=== PATIENT | female | born 1995 | race Two or more races ===

== ENCOUNTER 2024-03-12 07:29 | Outpatient (CLI) | payer MEDICAID, SELFPAY ==
--- NOTE | 2024-03-12 07:15 | CRLHL7_ITS ---
For Patients: As a result of the Cures Act, medical imaging exams and procedure reports are released immediately into your electronic medical record. You may view this report before your referring provider. If you have questions, please contact your health care provider. INDICATION: First trimester scan, establish dates. COMPARISON: None. TECHNIQUE: Real-time bettencourt-scale imaging of the pelvis was performed. FINDINGS: Sonographic imaging demonstrates a single living intrauterine gestation. The embryo demonstrates a regular cardiac rate measuring 176 beats per minute. The embryo`s crown-rump length measurement of 2.9 cm corresponds to a gestational age of 9 weeks 5 days with a sonographic due date of 10/10/2024. There is a normal-appearing yolk sac. There are no gross abnormalities noted within the embryo at this early state of development. The gestational sac has a normal appearance. There is no evidence of a perigestational hemorrhage. The amount of fluid within the sac appears appropriate for gestational age. The cervix is closed. The myometrium appears normal. The ovaries are of normal size. Corpus luteal cyst right ovary. There are no suspicious fluid collections noted in the cul-de-sac. IMPRESSION: Single living intrauterine with sonographic gestational age 9 weeks 5 days and sonographic due date of 10/10/2024. Dictated by Conrad Peck MD @ 03/12/2024 12:12:13 PM (Electronically Signed)
--- OUTSIDE RECORDS SUMMARY | 2024-03-12 07:36 | XMS_ITS | Data Portability ---
Author Organization [facility] Address [address] [place] [phone] Assessment No assessment recorded. Plan of Treatment Reminders Order Date Submit Date Provider Last Modified By Organization Details Last Modified Time Details Appointments None recorded . Lab beta-HCG , quantita tive, serum or plasma 021 02/15/20 21 [facility], [address] [place] [address], [phone], 1 13:19:28 pap, LB + reflex to HR HPV if ASC-U 022 05/01/20 22 [facility], [address] [place] [address], [phone], 2 13:31:23 Referral None recorded . Procedures None recorded . Surgeries None recorded . Imaging None recorded . Medication Orders Vienva 0.1 mg-20 mcg tablet 022 05/01/[address], [address], 2 14:39:41 Vienva 0.1 mg-20 mcg tablet 024 12/24/[address], [address], 4 12:33:22 Patient TargetsNo targets recorded. Patient InstructionsNo instructions recorded. Reason for Referral None Reported. Results Created Date Observation Date Name Description Value Unit Range Abnormal Flag Note LastModifiedBy Organization Detail LastModifiedTime 02/15/20 21 02/14/2021 pregn antoni test, urine HCG negati ve Not Available [facility] [facility] [address] [place], [address], 02/14/2021 12:54:52 Result Notes None recorded. Problems Name Problem SNOMED Code Status Onset Date Resolution Date Notes Provider Name and Address Organization Details Recorded Time Cyst of ovary 34986551 Active 021 Lindsay Bradshaw NP [address] [place], [address], [facility] [employer] 1 16:37:01 Migraine 67182934 Active 022 no jose Todd, LUIS [address] [place] [address], [phone], [facility] [employer] 2 14:08:27 Problem Notes None recorded. Procedures Surgical History Date Name Laterality Status Provider Name and Address Organization Details Recorded Time 0 delivery completed Lindsay Bradshaw NP [address] [place], [address], [facility] [employer] 02/14/2021 16:35:17 Imaging Results None recorded. Procedure Notes None recorded. Medical Equipment None Reported. Allergies No known drug allergies Medications Name Sig Start Date Stop Date Status Note LastModified by Organization Details LastModified Time Previfem 0.25 mg-35 mcg tablet Take 1 tablet every day by oral route. 02/15 completed Nauseaus Not Available Not Available Not Available Vienva 0.1 mg-20 mcg tablet TAKE ONE TABLET BY MOUTH ONCE DAILY 2023 active Not Available Not Available Not Avai lable Vitals Date Recorded Body height Body mass index (BMI) Body weight Body temperature Heart rate Systolic blood pressure Diastolic blood pressure Provider Name and Address Organization Details Last Updated DateTime 1 142.24 cm 25.6 kg/m2 75453.5 3 g 98.8 [degF] 81 /min 112 mm[Hg] 70 mm[Hg] Lindsay Bradshaw NP [address] [place], [address] 1 12:49:22 Date Recorded Heart rate Body weight Systolic blood pressure Diastolic blood pressure Provider Name and Address Organization Details Last Updated DateTime 05/01/2022 74 /min 38228.31 g 104 mm[Hg] 69 mm[Hg] Erick Peña [facility] 05/01/2022 15:36:51 Date Recorded Body height Body mass index (BMI) Body weight Respiratory rate Body temperature Oxygen saturation Oxygen saturation in Arterial blood by Pulse oximetry Heart rate Systolic blood pressure Diastolic blood pressure Provider Name and Address Organization Details Last Updated DateTime 4 142.24 cm 4.1 kg/m2 8255.38 g 22 /min 97.3 [degF] 99 % 99 % 77 /min 110 mm[Hg] 70 mm[Hg] Kim Mistry [facility] 4 10:08:31 Social History Question Answer Notes LastModified by Organizat ion Details LastModified Time Tobacco Smoking Status Never Smoker Lindsay Bradshaw, COOK[employer] [address] [place], [address], [facility] 02/14/2021 16:34:41 What Is Your Level Of Alcohol Consumption? None [email or web address] Information not available 12/24/2023 What Type Of Orange Picking Supervisor Do You Use? None [email or web address] Information not available 02/14/2021 How Many Children Do You Have? 1 [email or web address] Information not available 02/14/2021 What Is Your Relationship Status? [email or web address] Information not available 02/14/2021 Are You Sexually Active? Yes [email or web address] Information not available 02/14/2021 Do You Use Any Illicit Or Recreational Drugs? No Information not available 02/14/2021 Sex: Unknown Functional Status None recorded. Mental Status None recorded. Family History Relationship Description Onset Age of this Age Resolved Age Notes Father No current problems or disability Mother No current problems or disability Medical History No medical history recorded. Gynecological History Statement/Question Response Sexual Problems? N Current Control Method BCPs Age at First Child 24 LMP Unknown Sexually Active? Y Obstetrics History GPAL:G 1 P 1 0 0 1 Type Value Full Term 1 Living 1 Total 1 Past Encounters Encounter ID Performer Location Encounter Start Date Encounter Closed Date Diagnosis/Indication Diagnosis SNOMED-CT Code Diagnosis ICD10 Code [id number] Lindsay Bradshaw NP [facility] [address] [place] [id number] 02/14/2021 12:09:25 02/14/2021 14:20:03 Nausea and vomiting 97651289 R11.2 [id number] Bhumika Todd NP [facility] [address] [facility] [place] [id number] 05/01/2022 15:20:15 05/01/2022 16:45:41 Screening for malignant neoplasm of cervix 697594441 Z12.4 Surveillan ce of oral contraception 701425203 Z30.41 [id number] Bhumika Todd NP [facility] [address] [place] [id number] 12/24/2023 09:59:50 12/24/2023 12:36:09 Surveillance of oral contraception 580965323 Z30.41 Health Concerns Section Related Observation LastModified by Organization Detai ls LastModified Time None Recorded Concern Status LastModified by Organization Details LastModified Time None Recorded Advance Directives Directive None Recorded Payers Encounter Date Sequence Insurance Name Policy Number Policy Cross Covered Member ID Cross Member ID Guarantor Name 02/14/2021 SLIDING FEE SCHEDULE - DISCOUNT Linsey Lia Quix Rea 05/01/2022 SLIDING FEE SCHEDULE - DISCOUNT Linsey Lia Quix Rea 12/24/2023 SLIDING FEE SCHEDULE - DISCOUNT Linsey Lia Quix Rea Notes Date Note Type Note Provider Name and Address Organization Details Recorded Time 02/14/2021 text/html HPI Notes: 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 Linsey arrived here 3 months ago from [facility]. Just prior to leaving, she had received a Depo injection. She was enrolled in [facility] and saw a MD at [facility] who started her on Previfem for contraception. Around this time although perhaps before (patient is not quite sure), Linsey began feeling morning nausea and vomiting in the mornings. She also began having intermittent headaches. The symptoms have persisted for 15-20 days. These are the same symptoms she had with her first where she experienced daily nausea and vomiting until 7 months. 2 UPTs at home have been negative. Sexually active with . She is able to stay hydrated and keep down meals and snacks despite many foods tasting foul to her. Her sense of smell is heightened. No diarrhea, reflux. No stomach pain. No rashes, fever. No one else at home sick. No leg swelling, SOB. No vision changes, weakness, severe headache. Mother of 20 m.o. girl, Miguel. . C/S Open to . PSH: C/S x 1. PMH: Ovarian Cysts. Nonsmoker, No ETOH use. Lindsay Bradshaw NP [address] [place], [address], [facility] [employer] 02/14/2021 16:37:57 05/01/2022 text/html HPI Notes: Linsey is a 26 y.o. established patient presenting in follow up for refill of oral contraceptives and first pap smear Sexually active with one male partner - has missed pills in the past but taken UPTs. No STI testing concerns. LMP 10 days ago No history of HTN, blood clots, migraine with aura No other concerns today - denies vaginal symptoms, urinary symptoms Bhumika Todd NP [address] [place], [address], [facility] [employer] 05/01/2022 16:14:21 12/24/2023 text/html HPI Notes: Linsey presents for renewal of COCs Has RCFP program through 02/2024 Considering a in the coming months. Has a 4 y.o. with one c/section. No other complications. Taking pills daily, no risk of Sexually active with one male partner, no concern for STIs Safe at home Denies headaches, vision changes, severe abdominal/leg/chest pain Bhumika Todd NP [address] [place], [address], [facility] [employer] 12/24/2023 10:27:14 OBGyn Episode No OBEpisode recorded.
--- OUTSIDE RECORDS SUMMARY | 2024-03-12 07:36 | XMS_ITS | Clinical Summary ---
Author Organization [facility] Address [place], [place] [address] Care Team Providers Care Mobile Security Architect Name Role Phone Clinic, [facility] Primary Care Pr ovider Allergies No known active allergies Medications No known medications Active Problems No known active problems Family History Medical History Relation Name Comments Cancer No Family History Heart Disease No Family History Mental illness No Family History Stroke No Family History Social History Tobacco Use Types Packs/Day Years Used Date Smoking Tobacco: Never Smokeless Tobacco: Never Tobacco Cessation:Counseling Given: Yes Alcohol Use Standard Drinks/Week Comments Not Currently 0 (1 standard drink = 0.6 oz pur e alcohol) Social Connections Answer Date Recorded Frequency of Communication with Friends and Fami ly Not on file 05/02/2023 Financial Resource Strain Answer Date R ecorded Difficulty of Paying Living Expenses Not on file 07/14/2021 Difficulty of Paying Living Expenses Not on file 07/14/2021 Sex and Gender Information Value Date Recorded Sex Assigned at Not on file Gender Identity Not on file Sexual Orientation Not on file Obstetrics History Last Filed Vital Signs Vital Sign Reading Time Taken Comments Blood Pressure 105/70 05/02/2023 7:34 AM CDT Pulse 70 05/02/2023 7:34 AM CDT Temperature - - Respiratory Rate - - Oxygen Saturation 98% 05/02/2023 7:34 AM CDT Inhaled Oxygen Concentration - - Weight 51.6 kg (113 lb 12.8 oz) 05/02/2023 7:34 AM CDT Height 145.7 cm (4' 9.36) 05/02/2023 7:34 AM CD T Body Mass Index 24.32 05/02/2023 7:34 AM CDT Plan of Treatment Health Maintenance Due Date Last Done Comments Tdap 2006 Depression screening for age 12+ 2007 HIV for age 15-65 2010 Hepatitis C screening for ag e 18-79 2013 Tetanus booster 2015 COVID-19 vaccine series ( season) 2023 05/25/2021, 05/04/2021 Influenza for age 9-49 03/14/2024 BMI (ht and wt on same day) for age 18+ 05/02/2024 05/02/2023, 01/18/2021 Pap test for age 21-65 05/01/2025 , 05/01/2022 Pneumococcal series for age 6-64 Aged Out No longer eligible b ased on patient's age to complete this topic Procedures Procedure Name Priority Date/Time Associated Diagnosis Comments HPV THIN PREP Routine 05/01/2022 2:30 PM CDT from Last 3 Months or Most Recently Relevant to Health Maintenance Results * HPV HIGH RISK (05/01/2022 2:30 PM CDT) TYPE 16 Negative Negative 05/07/2022 11:17 AM CDT [facility] TYPE 18 Negative Negative 05/07/2022 11:17 AM CDT [facility] OTHER HIGH RISK TYPES Negative Negative 05/07/2022 11:17 AM CDT [facility] Other (Other) 05/01/2022 2:3 0 PM CDT 05/06/2022 9:33 AM CDT Narrative [facility] - 05/07/2022 11:17 AM CDT HPV types 16, 18, 31, 33, 35, 39, 45, 51, 52, 56, 58, 59, 66 and 68 DNA were undetectable or below the pre-set threshold. Methodology: Lara Omega 4800 HPV Test Bhumika Todd NP MICROBIOLOGY [facility] [address] [place] [address], [place] from Last 3 Months or Most Recently Relevant to Health Maintenance Care Teams Mobile Security Architect Relationship Specialty Start Date End Date Clinic, [facility] [address] [place] [address] PCP - General 02/23/24
--- OUTSIDE RECORDS SUMMARY | 2024-03-12 07:36 | XMS_ITS | Continuity of Care Document ---
Author Organization [facility] [place] [facility] [facility] Address [address] [place] [address] Assessment No assessment recorded. Plan of Treatment Reminders Order Date Submit Date Provider Last Modified By Organization Details Last Modified Time Details Appointments None recorded . Lab None recorded . Referral None recorded . Procedures None recorded . Surgeries None recorded . Imaging None recorded . Medication Orders Vienva 0.1 mg-20 mcg tablet 024 12/24/[address], [address], 4 12:33:22 Patient TargetsNo targets recorded. Patient InstructionsNo instructions recorded. Reason for Referral None Reported. Problems Name Problem SNOMED Code Status Onset Date Resolution Date Notes Provider Name and Address Organization Details Recorded Time Cyst of ovary 24879936 Active 021 Lindsay Bradshaw NP [address] [place], [address], [facility] [employer] 1 16:37:01 Migraine 26798605 Active 022 no aura Bhumika Todd NP [address] [place], [address], [facility] [employer] 2 14:08:27 Problem Notes None recorded. Procedures Surgical History Date Name Laterality Status Provider Name and Address Organization Details Recorded Time 0 delivery completed Lindsay Bradshaw NP [address] [place], [address], [facility] [employer] 02/14/2021 16:35:17 Imaging Results None recorded. Procedure [...] /min 110 mm[Hg] 70 mm[Hg] Kim Mistry MD [employer] 4 10:08:31 Social History Question Answer Notes LastModified by Organizat ion Details LastModified Time Tobacco Smoking Status Never Smoker Lindsay Bradshaw, [employer] [address] [place], [address], [facility] [employer] 02/14/2021 16:34:41 What Is Your Level Of Alcohol Consumption? None [email or web address] Information not available 12/24/2023 What Type Of Client Technical Specialist Do You Use? None [email or web address] Information not available 02/14/2021 How Many Children Do You Have? 1 [email or web address] Information not available 02/14/2021 What Is Your Relationship Status? [email or web address] Information not available 02/14/2021 Are You Sexually Active? Yes [email or web address] Information not available 02/14/2021 Do You Use Any Illicit Or Recreational Drugs? No [email or web address] Information not available 02/14/2021 Sex: Unknown Functional [...] Diagnosis/Indication Diagnosis SNOMED-CT Code Diagnosis ICD10 Code [id number] Bhumika Todd NP [facility] [address] [place], [place] [address] [address] 12/24/2023 09:59:50 12/24/2023 12:36:09 Surveillance of oral contraception 336183724 Z30.41 Health Concerns Section Related Observation LastModified by Organization Detai ls LastModified Time None Recorded Concern Status LastModified by Organization Details LastModified Time None Recorded Payers Encounter Date Sequence Insurance Name Policy Number Policy Cross Covered Member ID Cross Member ID Guarantor Name 12/24/2023 SLIDING FEE SCHEDULE - DISCOUNT Linsey Fitzgerald Dottie Rea Notes Date Note Type Note Provider Name and Address Organization Details Recorded Time 12/24/2023 text/html HPI Notes: Linsey presents for renewal of COCs Has [facility]FP program through 02/2024 Considering a in the coming months. Has a 4 y.o. with one c/section. No other complications. Taking pills daily, no risk of Sexually active with one male partner, no concern for STIs Safe at home Denies headaches, vision changes, severe abdominal/leg/kim st pain Bhumika Todd NP [address] [place], [address], [facility] [employer] 12/24/2023 10:27:14 OBGyn Episode No OBEpisode recorded.
== END 2024-03-12 07:30 | disposition home or self-care (01) ==
LOC: US 07:34
PROVIDERS: Visit Provider Physician Assistant
DX: Z34.91 Encounter for supervision of normal pregnancy, unspecified, first trimester (principal); Z3A.09 9 weeks gestation of pregnancy
CPT/HCPCS: 76817; 86592; 86703; 86704; 86706; 86762; 86787; 86803; 86850; 86900; 86901; 87086; 87340; 87491; 87591; T1013

== ENCOUNTER 2024-05-31 09:19 | Outpatient (CLI) | payer MEDICAID, SELFPAY ==
--- NOTE | 2024-05-31 09:15 | CRLHL7_ITS ---
For Patients: As a result of the Century Cures Act, medical imaging exams and procedure reports are released immediately into your electronic medical record. You may view this report before your referring provider. If you have questions, please contact your health care provider. INDICATION: Evaluate anatomy. COMPARISON: none TECHNIQUE: Real time bettencourt scale imaging of the fetus was performed as well as color Doppler analysis of the umbilical vessels. FINDINGS: Sonographic imaging demonstrates a single living intrauterine gestation. Fetus demonstrates a regular cardiac rate of 141 beats per minute. Fetus has a vertex position. The placenta lies posteriorly without evidence of placenta previa. Placental edge 5.8 cm from the internal cervical os. Amniotic fluid volume appears normal. Single deepest vertical pocket: 5.4 cm. The cervix is closed and measures 3.8 cm in length. The composite ultrasound gestational age is calculated at 21 weeks 1 day with an estimated sonographic due date of 10/10/2024. The estimated weight is 403 grams which lies at the 45th %. The following biometric measurements were obtained: Biparietal diameter: 5.1 cm/21 weeks 4 days 65th% Head circumference: 18.2 cm/20 weeks 4 days 19th% Abdominal circumference: 16.4 cm/21 weeks 3 days 54th% Femur length: 3.5 cm/20 weeks 6 days 32nd% The HC/AC ratio measures: 1.11 range (1.06-1.25) On anatomic survey, there is a normal appearance of the cerebral ventricles, cavum septi pellucidi, cisterna magna and cerebellum. The nose, lips, and facial profile appear normal. The cervical, thoracic and lumbar spine are well visualized and appear normal. There is a normal four-chamber heart view and the left and right ventricular outflow tracts appear normal. The diaphragm and stomach appear normal. The kidneys and bladder also appear normal. There is a normal three-vessel cord and marginal placenta cord insertion site. The four extremities appear normal. IMPRESSION: Concordance of clinical and sonographic dating. No intrinsic abnormalities noted on anatomic survey. Marginal placental cord insertion. Dictated by Conrad Peck MD @ 05/31/2024 11:01:50 AM (Electronically Signed)
--- OUTSIDE RECORDS SUMMARY | 2024-05-31 09:22 | XMS_ITS | Data Portability ---
Author Organization [facility] Address [address] [place] [phone] Assessment No assessment recorded. Plan of Treatment Reminders Order Date Submit Date Provider Last Modified By Organization Details Last Modified Time Details Appointments None recorded . Lab beta-HCG , quantita tive, serum or plasma 021 02/15/20 21 [facility], [address] [place] [address], [phone], 1 13:19:28 pap, LB + reflex to HR HPV if ASC-U 022 05/01/20 22 [facility], [address] [place] [address], [address], 2 13:31:23 Referral None recorded . Procedures None recorded . Surgeries None recorded . Imaging None recorded . Medication Orders Vienva 0.1 mg-20 mcg tablet 022 05/01/[address], [address], 2 14:39:41 Vienva 0.1 mg-20 mcg tablet 024 12/24/[address], [address], 4 12:33:22 Patient TargetsNo targets recorded. Patient InstructionsNo instructions recorded. Reason for Referral None Reported. Results Created Date Observation Date Name Description Value Unit Range Abnormal Flag Note LastModifiedBy Organization Detail LastModifiedTime 02/15/20 21 02/14/2021 pregn antoni test, urine HCG negati ve Not Available [facility] [address] [place], [address], 02/14/2021 12:54:52 Result Notes None recorded. Problems Name Problem SNOMED Code Status Onset Date Resolution Date Notes Provider Name and Address Organization Details Recorded Time Cyst of ovary 45898303 Active 021 Lindsay Bradshaw NP [address] [place], [address], [facility] 1 16:37:01 Migraine 06159929 Active 022 no jose Todd, LUIS [address] [place] [address], [phone], [facility] 2 14:08:27 Problem Notes None recorded. Procedures Surgical History Date Name Laterality Status Provider Name and Address Organization Details Recorded Time 0 delivery completed Lindsay Bradshaw NP [address] [place], [address], [facility] 02/14/2021 16:35:17 Imaging Results None recorded. Procedure [...] Updated DateTime 1 142.24 cm 25.6 kg/m2 41831.5 3 g 98.8 [degF] 81 /min 112 mm[Hg] 70 mm[Hg] Lindsay Bradshaw NP [address] [place], [address] 12:49:22 Date Recorded Heart rate Body weight Systolic blood pressure Diastolic blood pressure Provider Name and Address Organization Details Last Updated DateTime 05/01/2022 74 /min 71879.31 g 104 mm[Hg] 69 mm[Hg] [facility]rick [facility] 05/01/2022 15:36:51 Date Recorded Body height Body [...] /min 110 mm[Hg] 70 mm[Hg] Kim Mistry [facility] 4 10:08:31 Social History Question Answer Notes LastModified by Organizat ion Details LastModified Time Tobacco Smoking Status Never Smoker Lindsay Bradshaw, WATER MECHANIC [address] [place], [address] 02/14/2021 16:34:41 What Is Your Level Of Alcohol Consumption? None [email or web address] Information not available 12/24/2023 What Type Of Field Marketing Manager Do You Use? None Information not available 02/14/2021 How Many Children Do You Have? 1 [email or web address] Information not available 02/14/2021 What Is Your Relationship Status? [email or web address] Information not available 02/14/2021 Are You Sexually Active? Yes [email or web address] Information not available 02/14/2021 Do You Use Any Illicit Or Recreational Drugs? No [email or web address] Information not available 02/14/2021 Sex: Unknown Functional Status None recorded. Mental Status None recorded. Family History Relationship Description Onset Age of this Age Resolved Age Notes LastModified by Organization Details LastModified Time Father No current problems or disability [email or web address] Not available 12/23 10:17:36 Mother No current problems or disability [email or web address] Not available 12/23 10:17:36 Medical History No medical history recorded. Gynecological [...] Diagnosis/Indication Diagnosis SNOMED-CT Code Diagnosis ICD10 Code 36056 Lindsay Bradshaw NP [facility] [address] [place] [address] 02/14/2021 12:09:25 02/14/2021 14:20:03 Nausea and vomiting 35617565 R11.2 [id number] Bhumika Todd NP [facility] [address] [place] [address] 05/01/2022 15:20:15 05/01/2022 16:45:41 Screening for malignant neoplasm of cervix 404925953 Z12.4 Surveillan ce of oral contraception 142383278 Z30.41 [id number] Bhumika Todd NP [facility] [address] [place] [address] 12/24/2023 09:59:50 12/24/2023 12:36:09 Surveillance of oral contraception [id number] Z30.41 Health Concerns Section Related Observation LastModified [...] Address Organization Details Recorded Time 02/14/2021 text/html 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 Linsey arrived here 3 months ago from [facility]. Just prior to leaving, she had received a Depo injection. She was enrolled in [facility] and saw a MD at [facility] who started her on Previfem [...] C/S Open to . PSH: C/S x 1.PMH: Ovarian Cysts.Nonsmoker, No ETOH use. Lindsay Bradshaw NP [address] [place], [address], [facility] 02/14/2021 16:37:57 05/01/2022 text/html Linsey is a 26 y. o. established patient presenting in follow up for refill of oral contraceptives and first pap smearSexually active with one male partner - has missed pills in the past but taken UPTs. No STI testing concerns.LMP 10 days agoNo history of HTN, blood clots, migraine with auraNo other concerns today - denies vaginal symptoms, urinary symptoms Bhumika Todd NP [address] [place], [address], [facility] 05/01/2022 16:14:21 12/24/2023 text/html Linsey presents f or renewal of COCsHas RCFP program through 4Considering a in the coming months. Has a 4 y.o. with one c/section. No other complications.Taking pills daily, no risk of pregnancySexually active with one male partner, no concern for STIsSafe at homeDenies headaches, vision changes, severe abdominal/leg/chest pain Bhumika Todd NP [address] [place], [address], [facility] 12/24/2023 10:27:14 OBGyn Episode No OBEpisode recorded.
--- OUTSIDE RECORDS SUMMARY | 2024-05-31 09:22 | XMS_ITS | Clinical Summary ---
Author Organization [facility] Address [place], [place] [address] Care Team Providers Care Life Guard Name Role Phone Clinic, [facility] Primary [facility] Pr ovider Allergies No known [...] booster 2015 COVID-19 vaccine series ( season) 2024 05/25/2021, 05/04/2021 Influenza for age 9-49 03/14/2024 BMI (ht and wt on same day) for age 18+ 05/02/2024 05/02/2023, 01/18/2021 Pap test for age 21-65 05/01/2025 , 05/01/2022 Pneumococcal series for age 6-64 Aged Out No longer eligible b ased on patient's age to complete this topic Procedures Procedure Name Priority Date/Time Associated Diagnosis Comments HPV HIGH RISK Routine 05/01/2022 2:30 PM CDT from Last 3 Months or Most Recently Relevant to Health Maintenance Results * HPV HIGH RISK (05/01/2022 2:30 PM CDT) TYPE 16 Negative Negative 05/07/2022 11:17 AM CDT [facility] TYPE 18 Negative Negative 05/07/2022 11:17 AM CDT [facility] OTHER HIGH RISK TYPES Negative Negative 05/07/2022 11:17 AM CDT [facility] Other (Other) 05/01/2022 2:3 0 PM CDT 05/06/2022 9:33 AM CDT [facility]ative [facility] 05/07/2022 11:17 AM CDT HPV types 16, 18, 31, 33, 35, 39, 45, 51, 52, 56, 58, 59, 66 and 68 DNA were undetectable or below the pre-set threshold. Methodology: Lara Omega 4800 HPV Test Bhumika oTdd NP MICROBIOLOGY [facility] [address] [place] [address], [place] from Last 3 Months or Most Recently Relevant to Health Maintenance Care Teams Life Guard Relationship Specialty Start Date End Date Clinic, [facility] [address] [place] [address] PCP - General 02/23/24
== END 2024-05-31 09:20 | disposition home or self-care (01) ==
LOC: US 09:20
PROVIDERS: Visit Provider Obstetrics & Gynecology
DX: Z34.92 Encounter for supervision of normal pregnancy, unspecified, second trimester (principal); Z3A.21 21 weeks gestation of pregnancy
CPT/HCPCS: 76805; T1013

== ENCOUNTER 2024-07-19 07:49 | Outpatient (CLI) | payer MEDICAID, SELFPAY ==
--- NOTE | 2024-07-19 08:15 | CRLHL7_ITS ---
For Patients: As a result of the Century Cures Act, medical imaging exams and procedure reports are released immediately into your electronic medical record. You may view this report before your referring provider. If you have questions, please contact your health care provider. INDICATION: Third trimester scan, evaluate growth. Marginal cord insertion COMPARISON: 05/31/2024 TECHNIQUE: Real time bettencourt scale imaging of the fetus was performed. FINDINGS/IMPRESSION: Sonographic imaging demonstrates a single living intrauterine gestation. Fetus demonstrates a regular cardiac rate of 147 beats per minute. Fetus has a breech position. The placenta lies posteriorly. Amniotic fluid volume appears normal and there is a single deepest vertical pocket: 6.3 cm. The estimated weight is 1201gm which lies at the 42nd %. On the prior OB ultrasound exam dated 05/31/2024 the estimated weight was at the 45th%. BPD 76th percentile. HC 34th percentile. AC is 66th percentile. FL 10th percentile. The HC/AC ratio measures 1.07 range (1.01-1.21). Sonographic gestational age 28 weeks 3 days and a sonographic due date of 10/08/2024. Good correlation with dates. Normal interval growth. Dictated by Conrad Peck MD @ 07/19/2024 9:01:54 AM (Electronically Signed)
== END 2024-07-19 07:50 | disposition home or self-care (01) ==
LOC: US 07:49
PROVIDERS: Visit Provider Registered Nurse
DX: O43.193 Other malformation of placenta, third trimester (principal); Z3A.38 38 weeks gestation of pregnancy
CPT/HCPCS: 76816; 86592; T1013

== ENCOUNTER 2024-08-19 10:11 | Outpatient (CLI) | payer MEDICAID, SELFPAY | END 2024-08-19 10:12 | disposition home or self-care (01) | LOC: US 10:12 | PROVIDERS: Visit Provider Registered Nurse | DX: O43.193 Other malformation of placenta, third trimester (principal); Z3A.33 33 weeks gestation of pregnancy | CPT/HCPCS: 76816 ==

== ENCOUNTER 2024-09-02 09:50 | Outpatient (CLI) | payer MEDICAID, SELFPAY | END 2024-09-02 09:51 | disposition home or self-care (01) | LOC: NFLDREF 09-07 03:47 | PROVIDERS: Visit Provider Obstetrics & Gynecology | DX: Z34.93 Encounter for supervision of normal pregnancy, unspecified, third trimester (principal); Z3A.34 34 weeks gestation of pregnancy | CPT/HCPCS: 82728 ==

== ENCOUNTER 2024-09-15 13:45 | Outpatient (CLI) | payer MEDICAID, SELFPAY ==
--- NOTE | 2024-09-15 13:45 | CRLHL7_ITS ---
For Patients: As a result of the Cures Act, medical imaging exams and procedure reports are released immediately into your electronic medical record. You may view this report before your referring provider. If you have questions, please contact your health care provider. OBSTETRICAL ULTRASOUND ??? FOLLOW-UP, 09/15/2024 INDICATION: Marginal cord insertion. History of . [place] by LMP: 10/10/2024 Gestational Age: 36 weeks 3 days TECHNIQUE: Real-time bettencourt-scale imaging of the fetus was performed transabdominal. COMPARISON: 08/19/2024, 07/19/2024, 05/31/2024. FINDINGS: Fetus: Single Cervix: Not visualized positioning: Vertex Amniotic fluid: 6.6 cm SDP Placenta technique: Transabdominal Placenta position: Posterior heart rate: 154 bpm BIOMETRY: BPD: 9.4 cm, 38 weeks 3 days, 96.1% HC: 32.4 cm, 36 weeks 5 days, 27.7% AC: 34.9 cm, 38 weeks 6 days, greater than 97% FL: 6.3 cm, 32 weeks 5 days, less than 3% FL/AC Ratio: 18.1% HC/AC ratio: 0.9 EFW: 3143 grams; 6 lbs. 15 oz. age by this ultrasound: 36 weeks 5 days [place] by this ultrasound: 10/08/2024 Percentile by [place]: 74.0% IMPRESSION: 1. Sonographic gestational age is 36 weeks 5 days and sonographic due date is 10/08/2024. Good correlation with dates. Normal interval growth. 2. Estimated weight is 74th percentile. Abdominal circumference is greater than 97th percentile. Femur length is less than 3rd percentile. CONRAD JANSEN M.D. Diagnostic Radiologist [email or web address] Transcribed: 3:[address]/Dictated by: Conrad Jansen MD @ 09/15/2024 3:07:00 PM (Electronically Signed)
== END 2024-09-15 13:46 | disposition home or self-care (01) ==
LOC: US 13:46
PROVIDERS: Visit Provider Advanced Practice Midwife
DX: O43.193 Other malformation of placenta, third trimester (principal); Z3A.36 36 weeks gestation of pregnancy
CPT/HCPCS: 76816; 87081; 87653; T1013

== ENCOUNTER 2024-09-25 02:17 | Inpatient (IN) | payer MEDICAID, SELFPAY ==
[2024-09-24 22:30] VITALS: BP 106/65; PULSE 95
--- NOTE | 2024-09-24 22:45 | CRLHL7_ITS ---
For Patients: As a result of the Century Cures Act, medical imaging exams and procedure reports are released immediately into your electronic medical record. You may view this report before your referring provider. If you have questions, please contact your health care provider. INDICATION: Decreased movement with nonreassuring heart tones. TECHNIQUE: Ultrasound OB pelvis transabdominal. Real-time bettencourt-scale imaging of the fetus was performed without stress testing. COMPARISON: September 15, 2024. FINDINGS: Sonographic imaging demonstrates a single living intrauterine gestation. Fetus demonstrates a regular cardiac rate of 154 beats per minute. Fetus has a cephalic orientation. Posterior placenta. Amniotic fluid volume single deepest pocket 6.2 cm 2/2. motion 2/2. tone 2/2. breathing movements 2/2. IMPRESSION: Single viable intrauterine with a biophysical profile 02/18. Dictated by Ayad Flynn MD @ 09/25/2024 12:35:55 AM (Electronically Signed)
[2024-09-24] MEDS: LACTATED RINGERS 1000 ML 1,000 ML 500 ML IV (23:20)
[2024-09-25] VITALS (20 sets, daily range): BP systolic 98–160; BP diastolic 64–89; PULSE 54–73; RESP 14–20; TEMP 36.4–37.3; O2SAT 97–100; BMI 30.4
--- NOTE | 2024-09-25 01:21 | P.OBHP_ITS ---
OB - H&P: HPI History of Present Illness Chief complaint: Maternity Narrative: Linsey Rea is a 29 year old female who presented to triage at 37w6d GA for decreased movement. On arrival, she had a nonreactive NST with baseline of 155 beats per minute, mineral variability, absent acceleration and late decelerations. Attempts at resuscitation were started, including maternal repositioning and IV fluid bolus. A subsequent BPP was performed and noted to be 8/8, where we then it resumed extended monitoring. Throughout her time in triage, heart rate tracing has been nonreassuring and nonreactive. Baseline has remained normal at about 150 beats per minute, but variability has been predominantly minimal, with no 15 x 15 accelerations and intermittently decelerations. She has cracked melissa irregularly, nonpainful. However a late deceleration follows more than 50% of her contractions. I presented the bedside, where Linsey notes that she has started to feel more movement. She denies any regular/painful contractions, vaginal bleeding or leaking of fluid. She notes she has otherwise been in her normal state of health, aside from some groin pain and vaginal pressure. 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 on 09/22/24 # history of , arrest of labor in 1st stage vs failed induction * 2019 in [facility], she attempted to get the operative report, but was told that she would have to present to the hospital in person. She will sign a release of information form and will get us the information including the hospital had and physician that attended her during her delivery, so that we could try to obtain the information from the hospital via e-mail or fax. * Desires * Likelihood of success 36.5% per calculator if using arrest of labor as indication * TOLAC consent in Kenyan given for her review 04/07; patient does not have anymore, may need new copy to sign and return-Signed and returned 09/22/24 * Growth US at 36 weeks: 09/15/24: Vertex presentation, single deepest pocket of amniotic fluid 6.6 cm, EFW: 74 percentile, abdominal circumference more than the 97th percentile. # Marginal cord insertion * Ultrasound for growth at 28 and 34 weeks. Orders placed. * 28 week growth: EFW 41.7%E, AC 66.3%. SDP 6.3 cm. Breech position. * 32 weeks: EFW 67th percentile. Abdominal circumference 93%, vertex # Anemia 10.3 at 28 weeks, Started iron supplement 34 wk hgb: 10.6, continue iron supplement; new rx sent per her request NIPT: normal, consistent with female Flu: Declines Covid: Declines RSV: given 09/02/2024 TDAP: given 08/04/24 32 wk mental health: completed 34 wk hgb: 10.6, increased from previous and taking iron 36 wk GBS: Neg PFSH PFSH Surgical History History of ?Z98.891 - History of uterine scar from previous surgery (ICD-10) Social History Narrative: SOCIAL HISTORY: Occupation: [employer] mom. Marital status: . Spiritism/cultural needs: no. Chemical or radiation exposure: no. Pre- tobacco use: no. Pre- alcohol use: no. Current tobacco use: no. Current alcohol use: no. Recreational drug use: non. Dietary restrictions: no Blood transfusion acceptable in an emergency: yes. PSYCHOSOCIAL HISTORY: History of depression or currently depressed: no. Current or past physical, emotional, or sexual mistreatment: no. Problems that will make it hard to make it to appointments: no. What is your current living situation?: I presently have a place to live Problems where you live: mold In the past 12 months, utilities in danger of being shut off: no In past 12 months, lack of transportation kept you from medical appts, meetings, work, or getting things needed for daily living: no In the past 12 mos, have been you worried that your food would run out before you had money to buy more?: never true In the past 12 mos, the food you bought just didn't last and you didn't have money to buy more?: never true Smoking Status: Never smoker How often does anyone, including family, friends and others, physically hurt you : never How often does anyone, including family, friends and others, insult or talk down to you: never How often does anyone, including family, friends and others, threaten you with harm: never How often does anyone, including family, friends and others, scream or curse at you: never Health Related Social Needs: Inadequate housing (Z59.1) Meds Home Medications and Allergies Home Medications ?Medication ?Instructions ?Recorded ?Confirmed ?Type NEF-iwlm-GX-omega 3-fat com #1 27 1 cap PO DAILY 03/12/24 09/25/24 History mg-1 mg-300 mg capsule Allergies Allergy/AdvReac Type Severity Reaction Status Date / Time No Known Drug Allergies Allergy Verified 09/22/24 11:03 OB - H&P: Exam Physical Exam: Vital signs: Pulse BP 95 106/65 09/24/24 22:30 09/24/24 22:30 Narrative: General: Alert and oriented, no acute distress Psych: Appropriate mood and affect Abdomen: Gravid, nontender NST: Non reactive throughout extended monitoring. Baseline 150 beats per minute, mineral variability, no accelerations, intermittently decelerations. Webber: Melissa Q 4-8 minute, nonpainful Cervix: Long, thick and closed Assessment and Plan Assessment and plan (1) History of : Problem comment: Arrest of descent. 2019 in [facility] Status: Acute (2) Marginal insertion of umbilical cord: Status: Acute (3) Anemia: Status: Acute (4) Abnormal heart rate affecting : Status: Acute Plan Linsey is a 29yo at 37w6d GA who presented to triage with decreased movement. is complicated by history of (plan to TOLAC, success score 36.5%), marginal cord insertion and anemia. Patient has been monitored for nearly 4 hours in triage, during which her joslyn ng has been nonreactive. A BPP was performed and was noted to be 8/8, however I am concerned with her abnormal NST and maternal perception of decreased movement. Attempts at resuscitation have been completed including fluid resuscitation, drinking juice and maternal repositioning without success. I 1st presented to the bedside at about 0015 to discuss our findings and my concern for nonreassuring heart tones. Explained that nonreassuring testing at term is an indication for delivery, but expressed concern about baby's ability to tolerate induction of labor due to a baseline category 2 tracing. I explained the findings of the tracing in detail, in order to illustrate my concern for potential hypoxia and uteroplacental insufficiency. Explained my medical recommendation would be to proceed with repeat delivery tonight given nonreassuring FHR and decreased movement. Linsey understandably had questions about this new finding, as she noted her pre gnancy had been progressing normally and that all previous testing had been reassuring. She asked if we had any alternatives, where we discussed consideration for a contraction stress test versus consideration of a Cook placement. I did clearly explained that neither of these would be my recommended course medically, as I have great concern about however fetus would tolerate labor particularly in the setting of closed cervix and TOLAC. Patient took some time to consider and spoke with her partner. I then returned to the bedside, and reaffirmed my recommendation to proceed with in the setting of non-reassuring heart tones remote from delivery. We again reviewed the tracing findings in depth and alternatives. I again explained why labor would be anticipated to be stressful to baby that is already demonstrating low reserve at baseline given nonreactive and nonreassuring NST. After counseling, patient expressed understanding and was agreeable to proceeding with delivery as of 199. We discussed the risks, benefits and alternatives to repeat in detail. Patient would be agreeable to blood transfusion if needed. After discussion, written consent was obtained. All questions answered. - Admit to L and D for repeat C/S - OR crew notified to present for on scheduled repeat - Peds to attend delivery in the setting of nonreassuring status and on scheduled - Plan hemoglobin and type and screen - Ancef for perioperative antibiotics - EFW 3141g at 74%ile (AC of >97%ile) by US on 09/15 - BT O+ - GBS negative
[2024-09-25] MEDS: LACTATED RINGERS 1000 ML 1,000 ML 125 ML IV (02:30)
--- NOTE | 2024-09-25 02:59 | PM.OBPRCCS ---
Procedure Date of procedure: 09/25/24 Pre-op diagnosis: Nonreassuring heart tones, 37 weeks gestation, history of , marginal cord insertion Post-op diagnosis: same Procedure Done: Global Will [facility] bill your pro fee for this procedure?: Yes Blood Loss Measurement Type: QBL (315) IV fluids (mL): 700 Urine Output (mL): 50 Urine Output Comment: Yellow, clear Surgeon: Darryn Coffman MD Anesthesia Type: Spinal Findings: Mild adhesive disease between the rectus fascia and underlying muscles/peritoneum Unremarkable uterus, bilateral fallopian tubes and ovaries Liveborn female Procedure Name: Repeat delivery Procedure Description: Patient was taken to the operating room with IV running. She received cefazolin in preoperative prophylaxis. Spinal anesthesia was administered. Kong catheter was inserted. FHR via Doppler in the OR was 144bpm. She was prepped and draped in the usual sterile fashion. Anesthesia was tested and found to be adequate. A low-transverse skin incision was made with a scalpel and carried through to the underlying layer of fascia with the scalpel. The subcutaneous fat was dissected off the underlying fascia with Bovie and blunt dissection. The fascia was nicked in the midline with a scalpel, and this incision was extended laterally with scissors. The rectus muscles were in the midline. Peritoneum was identified and entered bluntly. Bovie was used to widen this opening laterally. Oswaldo O retractor was inserted and tightened down, providing excellent visualization of the lower uterine segment. The bladder reflection was found to be advanced along the lower uterine segment. A bladder flap was created with a combination of sharp and blunt dissection. Low-transverse uterine incision was made with a scalpel. Incision was widened bluntly. Clear amniotic fluid was noted, no blood tinge. The infant's head was grasped through the hysterotomy in OT position and elevated to the hysterotomy. The remainder of the body delivered without incident with the help of fundal pressure. No nuchal cord was noted. Stimulation of the commenced, where color was pale and tone was noted to be poor. Immediate cord clamping was performed, infant was handed off to attending nurses and Peds provider. The placenta was delivered with gentle traction on the cord. A segment was clamped for cord gases, requested and drawn by FERRY BOAT CAPTAIN. The uterus was cleaned of all clots and debris with the dry lap pad. Uterine atony was noted, where IM Methergine was requested and administered. The hysterotomy was reapproximated with 0 Vicryl in a running, locked fashion. Second layer of the same suture was used in imbricating fashion to obtain hemostasis. Excellent hemostasis and uterine tone was noted. The adnexa were examined and noted to be normal in appearance. The cul-de-sac and gutters were cleansed with dampened laparotomy sponge, removing any further clots and debris. The Oswaldo O retractor was removed. The hysterotomy was reexamined and found to be hemostatic. The rectus muscles were examined and made hemostatic with electrocautery as needed. The fascia was reapproximated with 0 Vicryl in a running fashion. Subcutaneous fat was irrigated and Bovie used on oozing vessels. The subcutaneous fat did not require closure. The skin was closed with a subcuticular stitch of 3-0 monocryl. Surgical glue was applied above this. Patient tolerated procedure well was taken to recovery area in stable condition. Placenta was inspected and noted to be complete, no apparent adherent hematoma to suggest abruption. Marginal cord insertion noted, cord appeared somewhat short and pale in color. Sent for pathologic evaluation. Surgical debrief was completed. details: - Liveborn female fetus - weight: pending at time of documentation - APGARs were 2 and 4 and 5 at 1, 5 and 10 minutes respectively - Cord gas ABG: pH 7.27, CO2 44, HCO3 20, base excess -5.8. Low pO2 and O2 saturation noted. - resuscitation was required with several minutes of PPV due to low heart rate before transition to CPAP. Diagnostic evaluation is ongoing. Please see Pediatrics documentation for complete details.
[2024-09-25] MEDS: CEFAZOLIN 2 GM INJ IVP (03:15)
[2024-09-25] MEDS: KETOROLAC 30 MG/ML inj IVP ×4 (03:53→22:36)
[2024-09-25 04:25] LABS: Basophils Absolute Auto 0.03 K/uL (0.00-0.30); Basophils Percent Auto 0.5 % (0.0-3.0); Eosinophils Percent Auto 1.5 % (0.0-7.0); Hematocrit 34.7 % (33.0-51.0); Hemoglobin* 11.1 gm/dL (12.0-16.0); Immature Granulocytes Abs Auto 0.03 K/uL (0.00-0.30); Immature Granulocytes Pct Auto 0.5 %; Lymphocytes Absolute Auto 1.32 K/uL (0.90-2.90); Mean Corpuscular HGB Conc 32 gm/dL (32-36); Mean Corpuscular Hemoglobin 26 pg (26-34); Mean Corpuscular Volume 80 fL (80-100); Monocytes Percent Auto 8.6 % (0.0-11.0); Neutrophils Absolute Auto 4.55 K/uL (1.7-7.0); Neutrophils Percent Auto 68.9 % (42.0-72.0); Platelet Count* 238 K/uL (140-440); RDW Coefficient of Variation % 16.3 % (11.5-15.5); Red Blood Count 4.32 m/uL (4.00-5.20); Slide Review Reflex No
--- NOTE | 2024-09-25 04:31 | P.ANES_ITS ---
Anesthesia Charges Start Date/Time Anesthesia Start Date: 09/25/24 Anesthesia Start Time: 02:56 Stop Date/Time Anesthesia Stop Date: 09/25/24 Anesthesia Stop Time: 04:18 Summary Emergency: RADIO ENGINEERING TEACHER Coding CPT Codes CPT Codes: ANESTH CS DELIVERY - 35098 ([id number]) P2 - PATIENT W/MILD SYST DISEASE, QZ - RADIO ENGINEERING TEACHER SVC W/O CLINICAL NURSE LEADER BY Additional Codes: Summary - Emergency: RADIO ENGINEERING TEACHER ([id number])
--- NOTE | 2024-09-25 04:31 | W.ANESCHARGE ---
Anesthesia Charges Start Date/Time Anesthesia Start Date: 09/25/24 Anesthesia Start Time: 02:56 Stop Date/Time Anesthesia Stop Date: 09/25/24 Anesthesia Stop Time: 04:18 Summary Emergency: BELLMAN CAPTAIN Coding CPT Codes CPT Codes: ANESTH CS DELIVERY - 03123 ([id number]) P2 - PATIENT W/MILD SYST DISEASE, QZ - BELLMAN CAPTAIN SVC W/O WASHER ASSEMBLER BY Additional Codes: Summary - Emergency: BELLMAN CAPTAIN ([id number])
--- NOTE | 2024-09-25 04:32 | W.PM.NB ---
Nerve Block Nerve Block Time Seen by Provider: 04:10 Date Seen: 09/25/24 Type of block requested by surgeon for post-operative analgesia: TAP Side: bilateral Time out performed: Yes Verification of patient name: Yes Verification of date of : Yes Site marking: site marked Name of person performing procedure: Uzair Pryor Continuous monitoring Was continuous monitoring of O2 sat, B/P, tie mill operator, recorded every 15 minutes?: Yes Procedure Checklist: sterile prep, needles and gloves Ultrasound guided. Images saved: Yes Medications given in 5ml increments after negative aspiration: Marcaine %: 0.25 mL: 30 Needle gauge: 20 and Exparel mL: 10 Needle gauge: 20 Patient tolerated procedure well: Yes Additional comments: Injected in 5 mL increments after negative aspiration Block Charges Block Charge (with Pro Fee): TAP Bilateral Use of Ultrasound Machine for Block: Yes- US Guidance/pain block
--- NOTE | 2024-09-25 04:47 | SUR.PHASEI ---
patient met discharge criteria per anesthesia
[2024-09-25] MEDS: ACETAMINOPHEN 500 MG TABLET 1000 MG PO ×3 (05:49→20:00)
[2024-09-25 06:04] LABS: Total Protein Urine 15 mg/dL
[2024-09-25 06:08] LABS: Creatinine Urine 11.1 mg/dL; Protein Creatinine Ratio Urine 1.35 (0-0.19)
[2024-09-25 06:34] LABS: Hematocrit 39.7 % (33.0-51.0); Hemoglobin* 12.8 gm/dL (12.0-16.0); Mean Corpuscular HGB Conc 32 gm/dL (32-36); Mean Corpuscular Hemoglobin 26 pg (26-34); Mean Corpuscular Volume 80 fL (80-100); Platelet Count* 257 K/uL (140-440); Red Blood Count 4.99 m/uL (4.00-5.20); White Blood Count* 16.77 K/uL (4.50-11.00)
[2024-09-25 06:58] LABS: Slide Review Reflex No
[2024-09-25 07:00] LABS: Alanine Aminotransferase* 13 U/L (4-35); Aspartate Amino Transferase* 19 U/L (12-35); Creatinine* 0.4 mg/dL (0.5-1.5); Estimated Glomerular Filt Rate 137 ml/min
[2024-09-25] MEDS: OXYCODONE 5 MG TABLET PO ×2 (08:19→23:38)
[2024-09-25] MEDS: DOCUSATE SODIUM 100 MG CAPSULE PO (10:23)
[2024-09-25] MEDS: SIMETHICONE 80 MG TAB.CHEW PO (19:59)
[2024-09-26 04:08] VITALS: BP 109/70; PULSE 71; RESP 16; TEMP 36.4
[2024-09-26] MEDS: KETOROLAC 30 MG/ML inj IVP (04:24)
[2024-09-26 07:13] LABS: Hemoglobin* 10.4 gm/dL (12.0-16.0)
[2024-09-26 07:36] VITALS: BP 107/66; PULSE 60; RESP 16; TEMP 36.2; O2SAT 96
--- NOTE | 2024-09-26 08:44 | PC.NURSE ---
Additional dose of ketorolac 30 mg IV push ordered per pharmacy protocol that patient receive 5 doses of ketorolac at the center after initial dose in the OR after . Patient received one dose of ketorolac 30 mg in the OR 09/25 at 0400. First dose was scheduled in the center for 0415 and was not re-timed and not given. Patient has only received 4 doses of ketorolac while inpatient in center at this time. Additional dose of ketorolac ordered for 09/26 at 1025 ONCE to complete the series of 5 doses administered in the center.
[2024-09-26] MEDS: DOCUSATE SODIUM 100 MG CAPSULE PO (08:56)
[2024-09-26] MEDS: ACETAMINOPHEN 500 MG TABLET 1000 MG PO ×3 (08:56→22:33)
--- NOTE | 2024-09-26 10:04 | PM.OBPNVD1 ---
OB - PN:Subj Subjective Date Seen: 09/26/24 Interval history: Linsey is a 29 y.o. who was admitted to L & D for repeat delivery due to non reassuring heart rate tracing. ?She had an uncomplicated .?She is feeling happy today, her baby had a normal echocardiogram yesterday and received a blood transfusion and states that she is doing much better, seems like she was moved out from NICU. The patient feels well. ?The pain is well controlled with current medications. ?She has no new complaints. ?She is expressing breast milk.? the patient has done well.? Vitals have been stable.? She has remained afebrile.? Has a good appetite, is tolerating a general diet. ?She is voiding without difficulty.? She is passing gas and has not had a bowel movement.? She is ambulating and denies any dizziness.? Has Small amount of rubra lochia. ? OB - PN: Obj Exam Physical Exam: Vital signs: Temp Pulse Resp BP Pulse Ox O2 Del Method 97.1 F L 60 16 107/66 96 Room Air 09/26/24 07:36 09/26/24 07:36 09/26/24 07:36 09/26/24 07:36 09/26/24 07:36 09/26/24 07:36 Narrative: GENERAL APPEARANCE:? normal affect, alert, no distress MOOD:? appropriate CHEST:? clear to auscultation HEART:? regular rate and rhythm ABDOMEN:? soft, non-tender the uterine fundus is 2cm below Umbilicus, Midline and is appropriate for the stage of recovery. EXTREMITIES:? normal and no edema Incision: Healing well, no surrounding erythema, abnormal induration or discharge. OB - PN: Obj Data Labs Labs: Laboratory Results - last 24 hr 09/26/24 06:39 Hgb 10.4 L OB - PN: A/P Delivery Assessment and Plan (1) History of : Problem details: Arrest of descent. [address] [facility] Status: Acute (2) Marginal insertion of umbilical cord: Status: Acute (3) Anemia: Status: Acute (4) Abnormal heart rate affecting : Status: Acute Plan day: 1 Plan: routine care Comments: If all continued to be well, she would prefer discharge home tomorrow.
[2024-09-26] MEDS: KETOROLAC 30 MG/ML inj IM (10:25)
[2024-09-26 11:42] VITALS: BP 105/67; PULSE 66; RESP 16; TEMP 36.8; O2SAT 99
[2024-09-26 16:04] VITALS: BP 112/70; PULSE 78; RESP 18; TEMP 36.8; O2SAT 98
[2024-09-26 17:45] LABS: Rapid Plasma Reagin (RPR) Non Reactive (Non Reactive)
[2024-09-26] MEDS: IBUPROFEN 600 MG TABLET PO (19:12)
[2024-09-26 20:49] VITALS: BP 112/73; PULSE 69; RESP 12; TEMP 36.8; O2SAT 97
[2024-09-26] MEDS: MAG HYDROX/ALUMINUM HYD/SIMETH 30 ML ORAL.SUSP PO (21:01)
[2024-09-26] MEDS: SIMETHICONE 80 MG TAB.CHEW PO (21:02)
[2024-09-26] MEDS: OXYCODONE 5 MG TABLET PO (21:02)
[2024-09-27] MEDS: IBUPROFEN 600 MG TABLET PO ×2 (00:57→07:56)
[2024-09-27 00:58] VITALS: BP 104/66; PULSE 68; RESP 12; TEMP 36.6; O2SAT 97
[2024-09-27 04:32] VITALS: BP 113/68; PULSE 59; RESP 14; TEMP 36.8; O2SAT 96
[2024-09-27] MEDS: ACETAMINOPHEN 500 MG TABLET 1000 MG PO (04:33)
--- NOTE | 2024-09-27 07:28 | P.DS_ITS ---
DS: Providers Provider Date Seen: 10/13/24 Date of admission: 09/25/24 02:17 Primary care physician: Not a Local Provider Admitting Clinician: Vicky Coffman MD Consults: 09/24/24 22:25 Consult to Assistant Manager Trainee [CONS] Routine Comment: Reason for Consult:: Apprentice Cook Needed Attending Physician on discharge: Maira Mcdonnell CNM DS: Diagnosis Discharge Diagnosis (1) care and examination immediately after delivery: Status: Acute (2) Elevated blood pressure reading without diagnosis of hypertension: Status: Acute (3) Lactating mother: Status: Acute Exam Narrative: Exam Narrative: GENERAL APPEARANCE:? normal affect, alert, no distress MOOD:? appropriate CHEST:? clear to auscultation HEART:? regular rate and rhythm ABDOMEN:? soft, non-tender the uterine fundus is at Umbilicus, Midline and is appropriate for the stage of recovery. EXTREMITIES:? normal and trace edema INCISION: Healing well, no surrounding erythema, abnormal induration or disc harge Const: Vital Signs, click to edit/add: Vital Signs - 24 hr 09/26/24 07:36 09/26/24 11:42 09/26/24 16:04 Temperature 97.1 F L 98.2 F 98.2 F Pulse Rate [Right Pulse Oximeter] 60 66 78 Respiratory Rate 16 16 18 Blood Pressure [Ri ght Arm] 107/66 105/67 112/70 Pulse Oximetry 96 99 98 Oxygen Delivery Me thod Room Air Room Air Room Air 09/26/24 20:49 09/27/24 00:58 09/27/24 04:32 Temperature 98.2 F 97.9 F 98.3 F Pulse Rate [Right Pulse Oximeter] 69 68 59 L Respiratory Rate 12 12 14 Blood Pressure [Ri ght Arm] 112/73 104/66 113/68 Pulse Oximetry 97 97 96 Oxygen Delivery Me thod Room Air Room Air Room Air Documenting provider has reviewed patient's vital signs: yes OB - DS: Summary Hospital Course Hospital Course: Linsey is a 29 y.o. G 2 P 2 who was admitted to L & D for decreased movement with non-reassuring status on testing. ?She had a section that was complicated by history of with adhesions. was transferred to NICU. The patient feels well. ?The pain is well controlled with current medications. ?She has no new complaints. ?She plans to breast feed and has been pumping. the patient has done well.? Vitals have been stable.? She has remained afebrile.? Has a good appetite, is tolerating a general diet. ?She is voiding without difficulty.? She is passing gas and has had a small bowel movement.? She is ambulating and denies any dizziness.? Has small amount of rubra lochia. Problems: Anemia Discharge home, baby in NICU. Follow up in 2 weeks and 6 weeks.? , may see if needed? Hgb 10.4. Iron supplement ordered orally every other day? Elevated BP without diagnosis of HTN, blood pressures have been stable ? Briefly discussed Kleihauer-Betke Test, as we were notified of a preliminary report of positive. NICU was notified but we are uncertain if the lab has received confirmatory result at this time. This was briefly discussed with her. For pain control of perineum, breast and pelvic pain, take 600 mg Ibuprofen every 6 hours as needed by mouth or 1000 mg acetaminophen (Tylenol) every 6 hours by mouth as needed. You can alternate these so you are taking something every 3 hours as needed. A heating pad can also be used for your abdomen or breasts. You may also take docusate sodium up to twice daily to soften your stools and help to prevent constipation. You may wean off of it when your stools return to normal.? Peripartum Data Infant delivery method: Repeat Section Procedures: Procedures Operation Date: 09/25/24 03:00 Actual Procedure Side Surgeon p Section Vicky Coffman MD complications: none [place] Gender: Female Infant Discharge Plan: Home Status at Discharge Functional status at discharge: independent ambulation Overall status at discharge: patient is progressing back to baseline Time Spent with Patient Time attestation: Total time spent providing and/or coordinating discharge services: Time spent: Less than 30 minutes Discharge Plan Discharge Disposition: Home, Self-Care Date of Admission: 09/25/24 02:17 Attending Provider on Discharge: Maira Mcdonnell Primary Care Provider: Provider,Not a Local Condition: Stable Anticipated Discharge Date/Time: 09/27/24 08:00 Discharge Medications: New acetaminophen 500 mg Tablet 1,000 mg PO Q6H PRN (Reason: Pain) Qty: 60 0RF docusate sodium 100 mg Capsule 100 mg PO DAILY Qty: 90 0RF ibuprofen 600 mg Tablet 600 mg PO Q6H PRN (Reason: Pain) Qty: 60 0RF simethicone 80 mg Tablet,Chewable 80 - 160 mg PO Q4H PRN (Reason: Gas) Qty: 30 0RF oxycodone 5 mg Tablet 5 - 10 mg PO Q4H PRN (Reason: Pain) Qty: 20 0RF Continued ferrous gluconate 270 mg (27 mg iron) tablet 270 mg PO QMWF Qty: 90 1RF [id number] 3-fat com #1 27-1-300 mg capsule 1 cap PO DAILY Discharge Orders: Discharge Order (Routine); Ordered 09/27/24 Ordered By: Maira Mcdonnell Patient Education: OB [place] Care, OB /Breast Feeding Additional Instructions: Discharge instructions were reviewed with the patient including signs and sympt oms of infection and home going medications Lifting Restrictions: 20 pounds for 6 weeks No not submerge incision under water X 2 weeks? Nothing vaginally for 6 weeks: no tampons or intercourse Do not drive while taking narcotic pain medication(s) Off Work or School for 8 weeks 2-week visit: incision check, discuss feeding concerns, review control options and screen for anxiety/depression. 6-week visit for an annual exam. consultation services are available to all mothers and babies for the first year after delivery.? To make an appointment, please call [phone]. Activity Level: Activity as Tolerated Discharge Diet: Regular Follow Up Appointments: [facility] [Provider Group] Forms: [employer] Info Instructions
[2024-09-27 07:36] VITALS: BP 100/60; PULSE 67; RESP 16; TEMP 36.5; O2SAT 98
[2024-09-27] MEDS: DOCUSATE SODIUM 100 MG CAPSULE PO (07:56)
== END 2024-09-27 11:20 | disposition home or self-care (01) | DRG 788 ==
LOC: OB OUT 02:17 → OB 02:17
PROVIDERS: Admitting Provider Obstetrics & Gynecology; Visit Provider Obstetrics & Gynecology
PROC: 10D00Z1 Extraction of Products of Conception, Low, Open Approach (ICD-10-PCS; CPT 59514; principal; 2024-09-25 02:45)
DX: O34.211 Maternal care for low transverse scar from previous cesarean delivery (principal); O36.8130 Decreased fetal movements, third trimester, not applicable or unspecified; O76 Abnormality in fetal heart rate and rhythm complicating labor and delivery; O69.89X0 Labor and delivery complicated by other cord complications, not applicable or unspecified; O99.02 Anemia complicating childbirth; D64.9 Anemia, unspecified; R03.0 Elevated blood-pressure reading, without diagnosis of hypertension; G89.18 Other acute postprocedural pain; Z37.0 Single live birth; Z3A.37 37 weeks gestation of pregnancy
CPT/HCPCS: 01961; 36415; 64488; 76819; 76942; 82565; 82570; 84156; 84450; 84460; 85018; 85025; 85027; 85460; 86592; 86850; 86900; 86901; 88184; 88307; 99140; G0463; T1013; A4314; A9270; J0665; J0666; J0690; J1100; J1885; J2210; J2371; J2405; J2590; J7120

== ENCOUNTER 2024-11-05 10:49 | Outpatient (CLI) | payer MEDICAID, SELFPAY ==
[2024-11-07 09:17] LABS: HPV Source Cervical; HPV, High Risk by TMA Not Detected
[2024-11-19 14:18] LABS: Pap Test Reviewed by Path Done
== END 2024-11-05 10:50 | disposition home or self-care (01) ==
PROVIDERS: Visit Provider Physician Assistant
DX: Z12.4 Encounter for screening for malignant neoplasm of cervix (principal); Z11.51 Encounter for screening for human papillomavirus (HPV)
CPT/HCPCS: 87624; 87625; 88141; 88142

== ENCOUNTER 2025-01-18 16:28 | Outpatient (CLI) | payer MEDICAID, SELFPAY | END 2025-01-18 16:29 | disposition home or self-care (01) | LOC: NFLDREF 16:29 | PROVIDERS: Visit Provider Registered Nurse | DX: Z12.4 Encounter for screening for malignant neoplasm of cervix (principal) | CPT/HCPCS: 88141; 88142 ==

== ENCOUNTER 2025-05-30 19:01 | Outpatient (CLI) | payer MEDICAID, SELFPAY | END 2025-05-30 19:02 | disposition home or self-care (01) | LOC: NFLDREF 06-04 16:17 | PROVIDERS: Visit Provider Nurse Practitioner Family | DX: R30.0 Dysuria (principal) | CPT/HCPCS: 87086 ==

== ENCOUNTER 2025-06-10 09:00 | Outpatient (CLI) | payer MEDICAID, SELFPAY | END 2025-06-10 09:01 | disposition home or self-care (01) | LOC: NFLDREF 09:00 | PROVIDERS: Visit Provider Obstetrics & Gynecology | DX: N93.9 Abnormal uterine and vaginal bleeding, unspecified (principal); R30.0 Dysuria | CPT/HCPCS: 84443; 87086 ==